=== PATIENT | female | born 1980 | race Hispanic/Latino ===

== ENCOUNTER 2016-09-28 21:24 | Emergency (ER) | payer MEDICAID, OTHER ==
[2016-09-28] MEDS ORDERED: Sodium Chloride 0.9% 1,000 ML IV STA (22:18)
--- NOTE | 2016-09-28 22:23 | ED PDOC ---
HPI: General Adult Time Seen by Provider: 09/28/16 21:45 Chief Complaint (Nursing): Syncope Chief Complaint (Provider): Syncope, headache History Per: Patient, Family (daughter) Additional Complaint(s): Pt. 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 Pt. states this was witnessed by her coworkers who report no convulsion like activity or incontinence. Pt. is uncertain how long she was unconscious for. Further states yesterday she developed a gradual onset headache which began in the morning and worsened at night and continued today. Also states that she's had similar symptoms in the past and 7 months ago she was seen in ED and discharged and had an outpatient stress test done which was normal. Denies head injury, N/V, abdominal pain, weakness, blurry vision, neck pain, incontinence. Past Medical History Reviewed: Historical Data, Nursing Documentation, Vital Signs Vital Signs: Last Vital Signs Temp 98.2 F 09/29/16 00:16 Pulse 96 H 09/29/16 00:16 Resp 20 09/29/16 00:16 BP 132/66 09/29/16 00:16 Pulse Ox 98 09/29/16 00:16 - Medical History PMH: Kidney Stones - Surgical History Surgical History: - Family History Family History: States: No Known Family Hx - Immunization History Hx Tetanus Toxoid Vaccination: No Hx Influenza Vaccination: No Hx Pneumococcal Vaccination: No - Home Medications Home Medications: Ambulatory Orders Medication Instructions Recorded Cyclobenzaprine [Cyclobenzaprine 10 mg PO TID #30 tab 12/03/15 HCl] traMADol [Ultram] 50 mg PO Q8 #20 tab 12/03/15 Ciprofloxacin HCl [Cipro] 500 mg PO BID #27 tablet 12/11/15 Naproxen 500 mg PO BID PRN #20 tab 12/11/15 Metoclopramide [Reglan] 10 mg PO Q8 PRN #30 tab 09/29/16 - Allergies Allergies/Adverse Reactions: Allergies Allergy/AdvReac Type Severity Reaction Status Date / Time aspirin Allergy RASH Verified 09/28/16 21:31 Penicillins Allergy RASH Verified 09/28/16 21:31 Review of Systems ROS Statement: Except As Marked, All Systems Reviewed And Found Negative Neurological: Positive for: Weakness, Headache Physical Exam - Reviewed Nursing Documentation Reviewed: Yes Vital Signs Reviewed: Yes - Physical Exam Appears: Positive for: Well, Non-toxic, No Acute Distress Head Exam: Positive for: ATRAUMATIC, NORMAL INSPECTION, NORMOCEPHALIC Skin: Positive for: Normal Color, Warm. Negative for: Rash Eye Exam: Positive for: EOMI, Normal appearance, PERRL ENT: Positive for: Normal ENT Inspection Neck: Positive for: Normal, Painless ROM Cardiovascular/Chest: Positive for: Regular Rate, Rhythm Respiratory: Positive for: CNT, Normal Breath Sounds Gastrointestinal/Abdominal: Positive for: Normal Exam, Bowel Sounds, Soft. Negative for: Tenderness Back: Positive for: Normal Inspection. 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 Negative for: Motor/ Sensory Deficits, Cerebellar Tests, Aphasia, Facial Droop - Laboratory Results Result Diagrams: 09/28/16 22:40 09/28/16 22:40 - ECG O2 Sat by Pulse Oximetry: 100 - Progress ED Course And Treament: Labs ordered. CT head w/o contrast ordered. Reglan 10mg IV, IV NS bolus given. CT head w/o contrast: negative. Disposition - Clinical Impression Clinical Impression: Syncope, Head injury - Patient ED Disposition Is Patient to be Admitted: No - Disposition Disposition: Routine/Home Disposition Time: 00:41 Condition: IMPROVED Prescriptions: Metoclopramide [Reglan] 10 mg PO Q8 PRN #30 tab PRN Reason: Other Instructions: Syncope (ED), Head Injury (ED)
[2016-09-28 23:00] LABS: BASO % 0.7 % (0.0-2.0); EOS # 0.1 K/uL (0.0-0.7); EOS % 1.5 % (0.0-4.0); HEMATOCRIT 37.4 % (34.0-47.0); LYMPH # 2.4 K/uL (1.0-4.3); LYMPH % 34.8 % (20.0-40.0); MEAN CELL VOLUME 85.2 fl (81.0-99.0); MEAN CORPUSCULAR HEMOGLOBIN 29.7 pg (27.0-31.0); MEAN CORPUSCULAR HGB CONC 34.9 g/dL (33.0-37.0); MEAN PLATELET VOLUME 8.3 fl (7.2-11.7); MONO # 0.5 K/uL (0.0-0.8); MONO % 7.2 % (0.0-10.0); NEUT # 3.9 K/uL (1.8-7.0); NEUT % 55.8 % (50.0-75.0); NRBC % 0.1 % (0.0-0.0); RED CELL DISTRIBUTION WIDTH 12.6 % (11.5-14.5)
[2016-09-28 23:06] LABS: PARTIAL THROMBOPLASTIN TIME 25.4 SECONDS (23.3-32.5)
[2016-09-28 23:07] LABS: ALB/GLOB RATIO 1.1 (1.0-2.1); ALKALINE PHOSPHATASE 88 U/L (38-126); ALT/SGPT 102 U/L (9-52); AST/SGOT 66 U/L (14-36); BILIRUBIN,TOTAL 0.2 mg/dl (0.2-1.3); BLOOD UREA NITROGEN 15 mg/dl (7-17); CALCIUM 9.2 mg/dL (8.4-10.2); CARBON DIOXIDE 26 mmol/L (22-30); CHLORIDE 103 mmol/L (98-107); GFR AFRICAN-AMERICAN > 60; GLUCOSE,RANDOM 98 mg/dL (65-105); POTASSIUM 3.7 MMOL/L (3.6-5.0); SODIUM 136 mmol/l (132-148); TOTAL PROTEIN 7.7 G/DL (6.3-8.2)
--- NOTE | 2016-09-28 23:12 | CT ---
EXAM: CT Head Without Intravenous Contrast. CLINICAL HISTORY: 36 years old, female; Pain; Headache; Additional info: Headache, syncope TECHNIQUE: Axial computed tomography images of the head/brain without intravenous contrast. This CT exam was performed using one or more of the following dose reduction techniques: automated exposure control, adjustment of the mA and/or kV according to patient size, and/or use of iterative reconstruction technique. Coronal and sagittal reformatted images were created and reviewed. COMPARISON: No relevant prior studies available. FINDINGS: Brain: No intracranial hemorrhage. No mass. No definite edema. Ventricles: No hydrocephalus. Bones/joints: No acute fracture. Soft tissues: Unremarkable. Sinuses: No acute sinusitis. Mastoid air cells: No mastoid effusion. Orbits: Unremarkable as visualized. IMPRESSION: 1. No acute intracranial abnormality. 2. Incidental/non-acute findings are described above.
[2016-09-29 00:17] VITALS: BP 132/66; PULSE 96; RESP 20; TEMP 98.2
[2016-09-29 00:43] VITALS: O2SAT 100
--- NOTE | 2016-10-05 17:21 | CARD ---
APPROVED REPORT EKG Measurement Heart [id number] <Conclusion> Normal sinus rhythm Normal ECG
== END 2016-09-29 00:53 | disposition home or self-care (01) ==
LOC: H.ER 21:24
DX: R51 Headache (principal); R55 Syncope and collapse; Z88.0 Allergy status to penicillin; S09.90XA Unspecified injury of head, initial encounter; Z87.442 Personal history of urinary calculi

== ENCOUNTER 2017-08-15 19:07 | Emergency (ER) | payer MEDICAID ==
[2017-08-15 19:12] VITALS: BP 137/77; PULSE 74; RESP 16; TEMP 97.9; O2SAT 100
[2017-08-15] MEDS ORDERED: Oxycodone/Acetaminophen 5/325 mg Tab PO STA (19:18)
[2017-08-15] MEDS ORDERED: Oxycodone/Acetaminophen 5/325 mg Tab ONE (19:23)
--- NOTE | 2017-08-15 19:44 | ED PDOC ---
Upper Extremity Pain/Injury Time Seen by Provider: 08/15/17 19:13 Chief Complaint (Nursing): Upper Extremity Problem/Injury Chief Complaint (Provider): Upper Extremity Problem History Per: Patient History/Exam Limitations: no limitations Onset/Duration Of Symptoms: Days (x1 week), Worse Since (pain radiation x1 day) Current Symptoms Are (Timing): Still Present Additional Complaint(s): 36 year old right-handed female presents to ED with complaints of atraumatic left elbow pain x1 week and has no relevant past medical history. Notes radiation of pain down her left hand starting today. (-) numbness, tingling, shoulder pain, chest pain, or fever. 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 PCP: Cori Gómez Past Medical History Reviewed: Historical Data, Nursing Documentation, Vital Signs Vital Signs: Last Vital Signs Temp 97.9 F 08/15/17 19:10 Pulse 74 08/15/17 19:10 Resp 16 08/15/17 19:10 BP 137/77 08/15/17 19:10 Pulse Ox 100 08/15/17 19:10 - Medical History PMH: Kidney Stones - Surgical History Surgical History: - Family History Family History: States: Unknown Family Hx - Living Arrangements Living Arrangements: With Family - Immunization History Hx Tetanus Toxoid Vaccination: No Hx Influenza Vaccination: No Hx Pneumococcal Vaccination: No - Home Medications Home Medications: Ambulatory Orders Medication Instructions Recorded Cyclobenzaprine [Cyclobenzaprine 10 mg PO TID #30 tab 12/03/15 HCl] traMADol [Ultram] 50 mg PO Q8 #20 tab 12/03/15 Ciprofloxacin HCl [Cipro] 500 mg PO BID #27 tablet 12/11/15 Naproxen 500 mg PO BID PRN #20 tab 12/11/15 Metoclopramide [Reglan] 10 mg PO Q8 PRN #30 tab 09/29/16 Tramadol HCl [Ultram] 1 - 2 tab PO BID PRN #10 tablet 08/15/17 - Allergies Allergies/Adverse Reactions: Allergies Allergy/AdvReac Type Severity Reaction Status Date / Time aspirin Allergy RASH Verified 09/28/16 21:31 Penicillins Allergy RASH Verified 09/28/16 21:31 Review of Systems ROS Statement: Except As Marked, All Systems Reviewed And Found Negative Constitutional: Negative for: Fever Cardiovascular: Negative for: Chest Pain Musculoskeletal: Positive for: Arm Pain (left elbow pain), Hand Pain (radiating to left hand). Negative for: Shoulder Pain Neurological: Negative for: Numbness Physical Exam - Reviewed Nursing Documentation Reviewed: Yes Vital Signs Reviewed: Yes - Physical Exam Appears: Positive for: Non-toxic, No Acute Distress Skin: Positive for: Normal Color, Warm, Dry Eye Exam: Positive for: Normal appearance, EOMI, PERRL Respiratory: Negative for: Respiratory Distress Pulses-Radial (L): 2+ Pulses-Radial (R): 2+ Extremity: Positive for: Normal ROM (full ROM to left elbow with pain). Negative for: Tenderness, Swelling - ECG O2 Sat by Pulse Oximetry: 100 (RA) Pulse Ox Interpretation: Normal - Radiology X-Ray: Interpreted by Me (L elbow x-ray) X-Ray Interpretation: No Acute Disease - Progress ED Course And Treament: Elbow jonatan wrapped and placed in sling by PA. Pt. searched on [place] [employer] Aware and indicate no previous narcotic prescription in the past 12 months. Medical Decision Making Medical Decision Makin Initial impression: elbow pain Initial plan: * XR ELBOW LEFT Scribe Attestation: Documented by Lynnette York, acting as a scribe for Evans Pretty PA-C. Provider Scribe Attestation: All medical record entries made by the Scribe were at my direction and personally dictated by me. I have reviewed the chart and agree that the record accurately reflects my personal performance of the history, physical exam, medical decision making, and the department course for this patient. I have also personally directed, reviewed, and agree with the discharge instructions and disposition. Disposition - Clinical Impression Clinical Impression: Elbow pain - Patient ED Disposition Is Patient to be Admitted: No - Disposition Referrals: Ronald Holley MD [Staff Provider] - Disposition: Routine/Home Disposition Time: 19:30 Condition: STABLE Prescriptions: Tramadol HCl [Ultram] 1 - 2 tab PO BID PRN #10 tablet PRN Reason: Pain Instructions: Arthralgia (ED) Forms: Quarterly (Angolan) Print Language: VIETNAMESE
--- NOTE | 2017-08-16 12:04 | RAD ---
PROCEDURE: Radiographs of the left elbow. HISTORY: pain COMPARISON: No prior. FINDINGS: BONES: Normal. No fracture. JOINTS: Normal. No osteoarthritis. SOFT TISSUES: Normal. JOINT EFFUSION: None. OTHER FINDINGS: None IMPRESSION: No evidence of acute fracture or dislocation. No radiographic evidence of significant joint effusion.
== END 2017-08-15 20:00 | disposition home or self-care (01) ==
LOC: H.ER 19:07
DX: M25.522 Pain in left elbow (principal); Z87.442 Personal history of urinary calculi; Z88.0 Allergy status to penicillin